=== PATIENT | female | born 1955 | race Caucasian/White ===

== ENCOUNTER → 2016-07-06 | Day surgery (SDC) | payer OTHER ==
[~2016-07-06] MED LIST: ACIPHEX20 MG PO; ADVAIR 250-501 EACH IH; ADVAIR 2501 DISK W/D PO; ALBUTEROL17 GM INH; ATIVAN PO; ATORVASTATIN CA10 MG PO; CELEXA PO; CITALOPRAM HBR40 MG PO; HCTZ PO; KEFLEX500 MG PO; LAMICTAL XR100 MG PO; LEVO-T50 MCG PO; LEVOTHYROXINE50 MCG PO; LEXAPRO PO; LIPITOR PO; LOSARTAN POTASS50 MG PO; PHENERGAN PO; PREDNISONE50 MG PO; PROVENTIL4 MG PO; SYMBICORT80 INH; SYNTHROID PO; TRAMADOL HCL50 M2 PO; TRAZODONE PO; TRIAMTERENE-HCT1 TA6 PO; TYLENOL #3 PO; VENTOLIN5 MG/ML INH; ZITHROMAX PO; ZOCOR20 MG PO
--- NOTE | ~2016-07-06 | OR ---
Unit #: [id number] #: [id number] Patient: NICHOLE SUAREZ [id number] [address] [address] [id number] O MR#: [id number] NAME: NICHOLE SUAREZ ROOM: Date of Procedure: 07/06/2016 Admission Date: 07/06/2016 Surgeon: Deonte Heredia Jr., M.D. : 1955 Attending Physician: Deonte Heredia Jr., M.D. Primary Care Physician: Jason Pham M.D. OPERATIVE REPORT INDICATION FOR THE PROCEDURE The patient is a 60-year-old white female, who has a nodular mass on the occipital scalp area and this has been slightly enlarging and causes discomfort at times. She is brought in this time for excision of this. PREOPERATIVE DIAGNOSIS Enlarging mass of the occipital scalp. POSTOPERATIVE DIAGNOSIS Enlarging mass of the occipital scalp, noting a lipomatous mass. ANESTHESIA 1% Xylocaine with epinephrine locally. PROCEDURE PERFORMED Excision of lipomatous mass of the occipital scalp. DESCRIPTION OF PROCEDURE The patient was positioned in prone position. After being prepped and draped in routine fashion, she was anesthetized locally in the area of the mass with 1% Xylocaine with epinephrine. A transverse incision was made approximately 2 inches in length. This was carried down through the subcutaneous tissue to the area of the nodular mass, which was obviously a lipomatous mass. This was dissected free of the surrounding tissue with a #10 blade scalpel and down to the deeper subcutaneous tissue. After it was completely removed, it was sent to pathology. Hemostasis was achieved with Bovie cautery. The deeper tissue approximated with interrupted 3-0 Vicryl sutures. Skin edges approximated with interrupted 4-0 nylon sutures. Ointment was applied externally. Estimated blood loss minimal. No drains used. No complications. The patient was discharged in satisfactory condition. Dictated by... Deonte Heredia Jr., M.D. JMB/candice TD: 07/07/2016 07:26 JOB #: [id number] CC: Jason Pham M.D. Unit #: [id number] #: [id number] Patient: NICHOLE SUAREZ OPERATIVE REPORT Page 1 of 1 X Deonte Heredia MD PROCEDURE OPERATIVE NOTE
== END | disposition home or self-care (01) ==
LOC: CSUR 09:22
DX: E65 Localized adiposity (principal); M79.89 Other specified soft tissue disorders; J45.909 Unspecified asthma, uncomplicated; Z88.1 Allergy status to other antibiotic agents; Z90.710 Acquired absence of both cervix and uterus
CPT/HCPCS: 88304

== ENCOUNTER → 2016-07-07 | Outpatient (CLI) | payer OTHER ==
--- NOTE | ~2016-07-07 | MY11 ---
[facility] A Service of [facility] RADIOLOGY TEXT RESULTS PATIENT: NICHOLE SUAREZ LOCATION: [facility] : 55 UNIT #: [id number] AGE: [address]: Jason Pham MD SEX: F ORDER DR: [id number] [facility] [address] [place], [place] [address] [id number] O MR#: [id number] Acc #: [id number] NAME: NICHOLE SUAREZ : 1955 SEX: F STUDY DATE/TIME: 07/07/2016 16:19 UNIT: [facility] ROOM: STUDY DESCRIPTION: MY Mammogram Screening Dig Edwar Attending Physician: Jason Pham M.D. Ordering Physician: Jason Pham M.D. Primary Care Physician: Jason Pham M.D. MEDICAL IMAGING REPORT This report is preliminary unless electronic signature is present EXAM Digital screening mammogram 07/07/2016. [facility] [place]. HISTORY 60-year-old woman no risk elevation. Annual screen. COMPARISON 06/06/2010 FINDINGS Digital imaging of each breast was completed utilizing screening protocol. Review includes FDA-approved CAD device. Breast parenchyma is partially fatty replaced. Occasional benign calcification is again noted in each breast slightly more so on the left. I see no suspicious mass. There are no interval occurring microcalcifications and no suspicious architectural deformity. IMPRESSION Negative mammogram. Annual screening recommended. Patients over the age of 40 are entered into a reminder system with target due date for the next mammogram. A result letter will also be sent to the patient. BIRADS: 1 Negative. Dictated by... Philippe Harris M.D. THIS IS AN ELECTRONICALLY VERIFIED REPORT Philippe Harris M.D. at 07/10/2016 11:44 AM Karen [facility] A Service of [facility] RADIOLOGY TEXT RESULTS PATIENT: NICHOLE SUAREZ LOCATION: [facility] : 55 UNIT #: [id number] AGE: [address]: Jason Pham MD SEX: F ORDER DR: TD: 07/10/2016 11:36 JOB #: [id number] MEDICAL IMAGING REPORT Page 1 of 1 COPY
== END | disposition home or self-care (01) ==
LOC: CWCC 16:03
DX: Z12.31 Encounter for screening mammogram for malignant neoplasm of breast (principal)
CPT/HCPCS: G0202

== ENCOUNTER → 2016-11-14 | Outpatient (CLI) | payer OTHER ==
--- NOTE | ~2016-11-14 | CR63 ---
[facility] A Service of [facility] RADIOLOGY TEXT RESULTS PATIENT: NICHLOE SUAREZ LOCATION: [facility] : 55 UNIT #: [id number] AGE: [address]: Jason Pham MD SEX: F ORDER DR: [id number] [facility] [address] [place], [place] [address] [id number] O MR#: [id number] Acc #: [id number] NAME: NICHOLE SUAREZ : 1955 SEX: F STUDY DATE/TIME: 11/14/2016 14:01 UNIT: [facility] ROOM: STUDY DESCRIPTION: CR Chest 2 View Attending Physician: Jason Pham M.D. Referring Physician: Jason Pham M.D. Ordering Physician: Jason Pham M.D. Primary Care Physician: Jason Pham M.D. MEDICAL IMAGING REPORT This report is preliminary unless electronic signature is present EXAM Chest 11/14/2016, [facility]. HISTORY 61-year-old woman, increasing short of air with exertion, bilateral wheezing. Cough. Symptoms x 1 week. The patient gives history of asthma. COMPARISON Portable chest 03/11/2014 FINDINGS PA and lateral chest views show normal cardiac size and configuration. Hilar structures and mediastinal contours are preserved. Lungs are hyperinflated with flattened diaphragms noted. I see no infiltrates. There is no lung mass and no evidence for pleural effusion. IMPRESSION Generalized pulmonary hyperinflation consistent with COPD. No acute chest finding. Dictated by... Philippe Harris M.D. THIS IS AN ELECTRONICALLY VERIFIED REPORT Philippe Harris M.D. at 11/15/2016 1:57 PM GARY/carine TD: 11/14/2016 16:19 JOB #: [id number] MEDICAL IMAGING REPORT Page 1 of 1 COPY
== END | disposition home or self-care (01) ==
LOC: CRAD 13:36
DX: J45.909 Unspecified asthma, uncomplicated (principal); R06.02 Shortness of breath; R91.8 Other nonspecific abnormal finding of lung field
CPT/HCPCS: 71020